=== PATIENT | female | born 1985 ===

== ENCOUNTER 2017-06-10 19:04 | Emergency (ER) | payer OTHER ==
[2017-06-10 19:28] VITALS: BP 126/86; PULSE 67; RESP 16; TEMP 98.6; O2SAT 100
--- NOTE | 2017-06-10 20:27 | ED PDOC ---
HPI: Female Pain Time Seen by Provider: 06/10/17 19:53 Chief Complaint (Nursing): Abdominal Pain History Per: Patient (Right lower quad abd pain assoc with vaginal spotting since last night. Home positive.) Onset/Duration Of Symptoms: Days (1) Current Symptoms Are (Timing): Still Present Severity: Mild Pain Scale Rating Of: 2 Quality Of Discomfort: Cramping Associated Symptoms: denies: Nausea, Vomiting, Diarrhea, Urinary Symptoms Abnormal Vaginal Bleeding: Yes Last Menstral Period: april 23 2017 : 3 Para: 2 Past Medical History Vital Signs: Last Vital Signs Temp 98.6 F 06/10/17 19:24 Pulse 67 06/10/17 19:24 Resp 16 06/10/17 19:24 BP 126/86 06/10/17 19:24 Pulse Ox 100 06/10/17 19:24 - Medical History PMH: No Chronic Diseases - Family History Family History: States: Unknown Family Hx - Allergies Allergies/Adverse Reactions: Allergies Allergy/AdvReac Type Severity Reaction Status Date / Time No Known Allergies Allergy Verified 06/10/17 19:28 Review of Systems Constitutional: Positive for: Fever Gastrointestinal: Positive for: Abdominal Pain. Negative for: Nausea, Vomiting , Diarrhea Genitourinary Female: Positive for: Vaginal Bleeding. Negative for: Dysuria, Frequency Musculoskeletal: Negative for: Back Pain Physical Exam - Physical Exam Appears: Positive for: Non-toxic, No Acute Distress Skin: Positive for: Normal Color, Warm, DRY Gastrointestinal/Abdominal: Positive for: Bowel Sounds, Soft, Tenderness (RLQ) Pelvic Exam: Positive for: External Exam Normal, No Masses. Negative for: Active Bleeding, Mass, Tender W/Cervical Motion, Tender Adnexa, Tender Uterus Back: Positive for: Normal Inspection. Negative for: L CVA Tenderness, R CVA Tenderness Extremity: Positive for: Normal ROM - Laboratory Results Result Diagrams: 06/10/17 21:10 06/10/17 21:10 - ECG O2 Sat by Pulse Oximetry: 100 Medical Decision Making Medical Decision Makin , Transvaginal IMPRESSION: 1. Intrauterine , of uncertain viability. Recommend followup. 2. RIGHT ovarian cyst. 3. Incidental/non-acute findings are described above. Disposition - Clinical Impression Clinical Impression: Threatened miscarriage - Patient ED Disposition Is Patient to be Admitted: No - Disposition [facility] Disposition: Routine/Home Disposition Time: 22:19 Condition: FAIR Instructions: Threatened Miscarriage (ED) Print Language: SINHALA
[2017-06-10 21:21] LABS: BASO % 0.4 % (0.0-2.0); EOS # 0.1 K/uL (0.0-0.7); HEMOGLOBIN 14.3 g/dL (12.0-16.0); LYMPH # 4.1 K/uL (1.0-4.3); MEAN CELL VOLUME 89.8 fl (81.0-99.0); MEAN CORPUSCULAR HEMOGLOBIN 29.9 pg (27.0-31.0); MEAN CORPUSCULAR HGB CONC 33.3 g/dL (33.0-37.0); MONO # 0.9 K/uL (0.0-0.8); MONO % 7.3 % (0.0-10.0); NEUT % 57.3 % (50.0-75.0); RBC 4.79 Mil/uL (3.80-5.20); RED CELL DISTRIBUTION WIDTH 13.7 % (11.5-14.5); WHITE BLOOD COUNT 12.1 K/uL (4.8-10.8)
[2017-06-10 21:29] LABS: ALB/GLOB RATIO 1.3 (1.0-2.1); ALBUMIN 4.4 g/dL (3.5-5.0); ALT/SGPT 46 U/L (9-52); AST/SGOT 31 U/L (14-36); BLOOD UREA NITROGEN 11 mg/dl (7-17); CALCIUM 9.4 mg/dL (8.4-10.2); GFR AFRICAN-AMERICAN > 60; GFR NON-AFRICAN AMERICAN > 60
--- NOTE | 2017-06-10 22:13 | US ---
EXAM: US , Transvaginal CLINICAL HISTORY: 32 years old, female; Pain; Other: Pelvic pain; Gestational age or lmp: 05/04/17; ; Additional info: R/O ectopic TECHNIQUE: Real-time transvaginal obstetrical ultrasound of the maternal pelvis and a first trimester with image documentation. Transvaginal imaging was used for better evaluation of the fetus and adnexa. COMPARISON: No relevant prior studies available. FINDINGS: Gestation: Gestational sac. Yolk sac. No pole. Mean sac diameter of 0.61 cm, out of range. Uterus/cervix: No subchorionic hemorrhage. No cervical dilatation or effacement. Ovaries: RIGHT ovary: 1.1 x 0.7 x 1.0 cm anechoic lesion. LEFT ovary: Normal. No adnexal masses. Free fluid: No significant free fluid. IMPRESSION: 1. Intrauterine , of uncertain viability. Recommend followup. 2. RIGHT ovarian cyst. 3. Incidental/non-acute findings are described above.
== END 2017-06-10 23:00 | disposition home or self-care (01) ==
LOC: H.ER 19:04
DX: O20.0 Threatened abortion (principal); N83.201 Unspecified ovarian cyst, right side